=== PATIENT | male | born 1970 | race African-American/Black ===

== ENCOUNTER 2017-09-28 20:47 | Emergency (ER) | payer MEDICAID ==
[~2017-09-28] VITALS: Ht 180.3 cm; Wt 108.0 kg
[~2017-09-28 20:47] MED LIST: ASPIRIN; ATENOLOL
[2017-09-28 21:31] VITALS: BP 136/91
== END 2017-09-28 22:40 | disposition home or self-care (01) ==
LOC: ER 22:23
DX: G62.9 Polyneuropathy, unspecified (principal); Z76.0 Encounter for issue of repeat prescription; E11.9 Type 2 diabetes mellitus without complications; Z79.82 Long term (current) use of aspirin; I10 Essential (primary) hypertension; Z91.19 Patient's noncompliance with other medical treatment and regimen; Z88.6 Allergy status to analgesic agent; Z88.8 Allergy status to other drugs, medicaments and biological substances
CPT/HCPCS: 99281; 99283